=== PATIENT | male | born 1955 | race Hispanic/Latino ===

== ENCOUNTER 2018-09-07 21:29 | Emergency (ER) | payer MEDICARE | END 2018-09-07 22:59 | disposition home or self-care (01) | LOC: EDH 21:29 | DX: S86.111A Strain of other muscle(s) and tendon(s) of posterior muscle group at lower leg level, right leg, initial encounter (principal); E11.9 Type 2 diabetes mellitus without complications; I10 Essential (primary) hypertension; Z91.041 Radiographic dye allergy status; Z88.0 Allergy status to penicillin; Z87.442 Personal history of urinary calculi; X58.XXXA Exposure to other specified factors, initial encounter; Y93.89 Activity, other specified; Y92.89 Other specified places as the place of occurrence of the external cause; Y99.8 Other external cause status | CPT/HCPCS: 73590 ==

== ENCOUNTER 2019-11-02 14:36 | Emergency (ER) | payer MEDICARE ==
[2019-11-02 15:07] LABS: BASOPHILS % (AUTO) 0.9 % (0.0-5.0); EOSINOPHILS % (AUTO) 4.7 % (0.0-8.0); HEMATOCRIT 44.6 % (42-54); LYMPHOCYTES % (AUTO) 40.4 % (21.0-51.0); MEAN CORPUSCULAR HEMOGLOBIN 29.4 pg (27.0-33.0); MEAN CORPUSCULAR HGB CONC 32.5 g/dL (32.0-36.0); MEAN CORPUSCULAR VOLUME 90.5 fL (79-99); MONOCYTES % (AUTO) 9.8 % (3.0-13.0); PLATELET COUNT (AUTO) 223 K/uL (130-400); RED BLOOD CELL COUNT(AUTO) 4.93 MIL/uL (4.50-6.20); RED CELL DISTRIBUTION WIDTH 13.5 % (11.0-15.5); WHITE BLOOD COUNT (AUTO) 6.3 K/uL (4.8-10.8)
[2019-11-02 15:23] LABS: CREATININE 1.1 mg/dL (0.5-1.5); POTASSIUM 3.7 mmol/L (3.5-5.1)
[2019-11-02 15:28] LABS: ALBUMIN 3.9 g/dL (3.5-5.0); BILIRUBIN,TOTAL 0.3 mg/dL (0.2-1.0); TOTAL PROTEIN, SERUM 7.7 g/dL (6.0-8.3)
[2019-11-02 15:50] LABS: APPEARANCE,URINE Clear (CLEAR); BILIRUBIN,URINE Negative (NEGATIVE); COLOR,URINE Yellow (YELLOW); GLUCOSE, URINE (UA) >=1000 mg/dL (NEGATIVE); KETONES,URINE Negative (NEGATIVE); LEUKOCYTE ESTERASE ,URINE Negative (NEGATIVE); NITRATE,URINE Negative (NEGATIVE); OCCULT BLOOD,URINE Negative (NEGATIVE); PROTEIN,URINE Negative (NEGATIVE)
[2019-11-02 16:00] LABS: BACTERIA,URINE None Seen /HPF (None Seen); RBC,URINE 0-1 /HPF (0-1); SQUAMOUS EPITHELIAL CELL,UR 0-2 /HPF (0-2); WBC,URINE 0-1 /HPF (0-1)
[2019-11-02] MEDS ORDERED: DEXAMETHASONE SOD PHOSPHATE 10MG/ML 1ML VIAL ONE ×2 (16:53→17:01)
[2019-11-02] MEDS ORDERED: KETOROLAC TROMETHAMINE 30MG/ML ONE ×2 (16:54→17:01)
[2019-11-02] MEDS ORDERED: ORPHENADRINE CITRATE 30 MG/ML ML ONE (16:54)
[2019-11-02] MEDS ORDERED: CYCLOBENZAPRINE HCL 10 MG TABLET ONE (17:06)
[2019-11-02] MEDS ORDERED: NITROGLYCERIN 1GM/1 INCH PACKET TD ONE (17:46)
[2019-11-02] MEDS ORDERED: LORAZEPAM 2 MG/ML 1 ML VIAL ONE (17:47)
[2019-11-02] MEDS ORDERED: DEXTROSE 50%-WATER 50 ML DISP.SYRIN IV ONE (18:37)
[2019-11-26] MEDS ORDERED: METF-446 PO (14:10)
[2019-11-26] MEDS ORDERED: LISI-617 PO (14:10)
[2019-11-26] MEDS ORDERED: EMPA25TA PO (14:10)
[2019-11-26] MEDS ORDERED: DULO60CA44 PO (14:10)
[2019-11-26] MEDS ORDERED: EZET10TA13 PO (14:10)
[2019-11-26] MEDS ORDERED: METO-408 PO (14:10)
[2019-11-26] MEDS ORDERED: CLOP75TA14 PO (14:10)
[2019-11-26] MEDS ORDERED: INSU100I3 SQ (14:10)
[2019-11-26] MEDS ORDERED: AEC81 PO (14:10)
[2019-11-26] MEDS ORDERED: SITA100T12 PO (14:10)
[2019-11-26] MEDS ORDERED: ROSU40 PO (14:10)
[2019-11-26] MEDS ORDERED: RANO500T3 PO (14:10)
== END 2019-11-02 19:40 | disposition home or self-care (01) ==
LOC: EDH 14:36
DX: M54.5 Low back pain (principal); N50.89 Other specified disorders of the male genital organs; E11.9 Type 2 diabetes mellitus without complications; I10 Essential (primary) hypertension; Z88.0 Allergy status to penicillin; Z91.041 Radiographic dye allergy status
CPT/HCPCS: 36415; 76870; 80053; 81001; 82948; 85025; 93005; 96374; 96375; 99285; J1100 ×2; J1885 ×2; J2360; J7070; J2060

== ENCOUNTER → 2019-11-21 | Outpatient (CLI) | payer MEDICARE ==
[~2019-11-21] VITALS: Ht 177.8 cm; Wt 97.2 kg
[~2019-11-21] MED LIST: AEC81 PO; CLOP75TA14 PO; DULO60CA44 PO; EMPA25TA PO; EZET10TA13 PO; INSU100I3 SQ; LISI-617 PO; METF-446 PO; METO-408 PO; RANO500T3 PO; ROSU40 PO; SITA100T12 PO
[2019-11-21 13:24] LABS: EOSINOPHILS % (AUTO) 3.3 % (0.0-8.0); HEMATOCRIT 47.1 % (42-54); LYMPHOCYTES % (AUTO) 36.1 % (21.0-51.0); MEAN CORPUSCULAR HEMOGLOBIN 29.1 pg (27.0-33.0); MEAN CORPUSCULAR HGB CONC 32.1 g/dL (32.0-36.0); MEAN CORPUSCULAR VOLUME 90.8 fL (79-99); MONOCYTES % (AUTO) 8.2 % (3.0-13.0); NEUTROPHILS % (AUTO) 51.3 % (40.0-77.0); PLATELET COUNT (AUTO) 256 K/uL (130-400); RED BLOOD CELL COUNT(AUTO) 5.19 MIL/uL (4.50-6.20); RED CELL DISTRIBUTION WIDTH 13.6 % (11.0-15.5); WHITE BLOOD COUNT (AUTO) 7.2 K/uL (4.8-10.8)
[2019-11-21 13:33] LABS: CREATININE 1.1 mg/dL (0.5-1.5); POTASSIUM 4.4 mmol/L (3.5-5.1)
[2019-11-21 13:41] LABS: INR 0.93 (0.85-1.15); PARTIAL THROMBOPLASTIN TIME 26.1 SEC (26.3-35.5); PROTHROMBIN TIME 10.1 SEC (9.6-11.6)
[2019-11-26 13:15] VITALS: BP 150/84
--- NOTE | 2019-11-26 14:11 | NUR ---
REPORTED TO DR. OCASIO NURSE BESIDE HIM IN SURGERY, PT DID NOT STOP ASPIRIN AND PLAVIX FOR PROCEDURE. DR. VALDOVINOS NOTIFIED BUT IS IN SURGERY WILL CALL BACK.
--- NOTE | 2019-11-26 15:59 | NUR ---
CALLED TO SPEAK TO DR. VALDOVINOS . NO ANSWER.
--- NOTE | 2019-11-26 16:23 | NUR ---
PROCEDURE CANCELLED BY DR. VALDOVINOS.
== END | disposition home or self-care (01) ==
LOC: DAH 10:00 → EDSTATUS 12:00
PROVIDERS: ATTEND Urology
DX: N49.9 Inflammatory disorder of unspecified male genital organ (principal); Z20.828 Contact with and (suspected) exposure to other viral communicable diseases; E11.9 Type 2 diabetes mellitus without complications; I25.10 Atherosclerotic heart disease of native coronary artery without angina pectoris; I10 Essential (primary) hypertension; Z53.8 Procedure and treatment not carried out for other reasons; Z95.5 Presence of coronary angioplasty implant and graft; Z88.0 Allergy status to penicillin; Z79.899 Other long term (current) drug therapy; Z79.4 Long term (current) use of insulin; Z79.01 Long term (current) use of anticoagulants
CPT/HCPCS: 36415; 71045; 80048; 85025; 85610; 85730; 93005; C9803; U0003

== ENCOUNTER 2019-12-25 08:22 | Day surgery (SDC) | payer MEDICARE ==
[2019-12-19 12:23] LABS: BASOPHILS % (AUTO) 0.8 % (0.0-5.0); HEMATOCRIT 46.3 % (42-54); LYMPHOCYTES % (AUTO) 19.9 % (21.0-51.0); MEAN CORPUSCULAR HEMOGLOBIN 29.3 pg (27.0-33.0); MEAN CORPUSCULAR HGB CONC 32.6 g/dL (32.0-36.0); MEAN CORPUSCULAR VOLUME 89.7 fL (79-99); MONOCYTES % (AUTO) 7.3 % (3.0-13.0); NEUTROPHILS % (AUTO) 69.8 % (40.0-77.0); PLATELET COUNT (AUTO) 281 K/uL (130-400); RED BLOOD CELL COUNT(AUTO) 5.16 MIL/uL (4.50-6.20); RED CELL DISTRIBUTION WIDTH 13.2 % (11.0-15.5); WHITE BLOOD COUNT (AUTO) 8.4 K/uL (4.8-10.8)
[2019-12-19 12:43] LABS: INR 0.94 (0.85-1.15); PARTIAL THROMBOPLASTIN TIME 27.5 SEC (26.3-35.5); PROTHROMBIN TIME 10.2 SEC (9.6-11.6)
[2019-12-19 12:50] LABS: CREATININE 1.2 mg/dL (0.5-1.5); POTASSIUM 4.3 mmol/L (3.5-5.1)
[2019-12-19 13:27] LABS: APPEARANCE,URINE Clear (CLEAR); BILIRUBIN,URINE Negative (NEGATIVE); COLOR,URINE Yellow (YELLOW); GLUCOSE, URINE (UA) >=1000 mg/dL (NEGATIVE); KETONES,URINE 15 mg/dL (NEGATIVE); LEUKOCYTE ESTERASE ,URINE Negative (NEGATIVE); NITRATE,URINE Negative (NEGATIVE); OCCULT BLOOD,URINE Negative (NEGATIVE); PH,URINE 5.5 (5.0-8.0); PROTEIN,URINE Negative (NEGATIVE)
[2019-12-19 14:13] LABS: BACTERIA,URINE Rare /HPF (None Seen); RBC,URINE None Seen /HPF (0-1); WBC,URINE None Seen /HPF (0-1)
[2019-12-19 14:14] LABS: SQUAMOUS EPITHELIAL CELL,UR 0-2 /HPF (0-2)
[2019-12-24 11:04] VITALS: BP 158/86
--- NOTE | 2019-12-24 16:14 | NUR ---
MARCIA CHRISTIANSON ON PHONE. PER DR. VALDOVINOS, PT IS TAKING MACROBID ALREADY.
[~2019-12-25] VITALS: Ht 177.8 cm; Wt 96.3 kg
[2019-12-25] VITALS (17 sets, daily range): BP systolic 116–163; BP diastolic 74–94
[2019-12-25] MEDS: CEFAZOLIN SODIUM 1 GM VIAL IVP SCH ×2 (06:00→09:25)
[~2019-12-25 08:22] MED LIST changes: +INSLAN SQ
[2019-12-25] MEDS ORDERED: INSLAN SQ ×2 (08:56→08:58)
[2019-12-25] MEDS ORDERED: SODIUM CHLORIDE 0.9% 1000ML 1,000 ML IV ONE (09:06)
[2019-12-25] MEDS ORDERED: SUCCINYLCHOLINE 200MG/10ML SYR ONE ×2 (09:20→09:22)
[2019-12-25] MEDS ORDERED: GLYCOPYRROLATE 1 MG/5 ML SYRINGE ONE (09:20)
[2019-12-25] MEDS ORDERED: ONDANSETRON HCL 4 MG/2 ML VIAL ONE (09:20)
[2019-12-25] MEDS ORDERED: LIDOCAINE PF 2% 5ML ABBOJECT ONE ×2 (09:20→09:22)
[2019-12-25] MEDS ORDERED: DEXAMETHASONE SOD PHOSPHATE 10MG/ML 1ML VIAL ONE (09:20)
[2019-12-25] MEDS ORDERED: MIDAZOLAM HCL 1 MG/ML 2ML VIAL ONE (09:20)
[2019-12-25] MEDS ORDERED: NEOSTIGMINE 5MG/5ML SYR IV ONE (09:20)
[2019-12-25] MEDS ORDERED: PROPOFOL 10 MG/ML 20ML VIAL IV ONE (09:20)
[2019-12-25] MEDS ORDERED: ROCURONIUM 10MG/1ML SYR 10 MG/ML ML ONE ×2 (09:21→10:22)
[2019-12-25] MEDS ORDERED: FENTANYL CITRATE PF 50 MCG/1 ML 2ML VIAL ONE (09:21)
[2019-12-25] MEDS ORDERED: MEPERIDINE-PF 25 MG/ML SYG ONE ×2 (10:59→11:10)
--- NOTE | 2019-12-25 11:50 | NUR ---
FLUID INTAKE: DRINKING SIPS OF WATER AND APPLE JUICE WITH OUT COMPLAINING OF NAUSEA. NO EMESIS. TOLERATING FLUIDS WELL.
== END 2019-12-25 12:35 | disposition home or self-care (01) ==
LOC: DAH 08:22
PROVIDERS: ATTEND Urology
DX: N49.9 Inflammatory disorder of unspecified male genital organ (principal); I25.10 Atherosclerotic heart disease of native coronary artery without angina pectoris; E11.9 Type 2 diabetes mellitus without complications; Z95.5 Presence of coronary angioplasty implant and graft; I10 Essential (primary) hypertension; Z88.0 Allergy status to penicillin; Z20.828 Contact with and (suspected) exposure to other viral communicable diseases; Z79.01 Long term (current) use of anticoagulants
CPT/HCPCS: 36415; 54830; 71045; 80048; 81001; 82948 ×2; 85025; 85610; 85730; 87088; 93005; A4215; A4221; A4222; A4223 ×2; A4358; A4657; A4663; A6260; C9803; J0330 ×2; J0690; J1100; J2001 ×2; J2175 ×2; J2250; J2405; J2704; J2710; J3010; J3490; J7030; J7120; U0003

== ENCOUNTER 2023-09-24 09:56 | Emergency (ER) | payer OTHER, MEDICARE ==
[~2023-09-24] VITALS: Ht 175.3 cm; Wt 90.7 kg
[~2023-09-24 09:56] MED LIST changes: +AZIT500T4 PO; +CLOP-31 PO; -CLOP75TA14 PO; -DULO60CA44 PO; +DULO60CA45 PO; -EZET10TA13 PO; +EZET10TA81 PO; -LISI-617 PO; +LISI5TAB21 PO
[2023-09-24 11:24] LABS: BASOPHILS # (AUTO) 0.06 K/uL (0.00-0.20); EOSINOPHILS # (AUTO) 0.22 K/uL (0.00-0.70); EOSINOPHILS % (AUTO) 3.7 % (0.0-8.0); IMMATURE GRANULOCYTE ABSOLUTE 0.01 K/uL (0-1); LYMPHOCYTES # (AUTO) 2.3 K/uL (1.0-4.8); LYMPHOCYTES % (AUTO) 38.9 % (21.0-51.0); MEAN CORPUSCULAR HEMOGLOBIN 29.2 pg (27.0-33.0); MEAN CORPUSCULAR HGB CONC 32.4 g/dL (32.0-36.0); MEAN CORPUSCULAR VOLUME 90.2 fL (79-99); MONOCYTES # (AUTO) 0.5 K/uL (0.1-1.0); MONOCYTES % (AUTO) 8.6 % (3.0-13.0); NEUTROPHILS # (AUTO) 2.8 K/uL (1.8-7.7); NEUTROPHILS % (AUTO) 47.6 % (40.0-77.0); PLATELET COUNT (AUTO) 200 K/uL (130-400); RED CELL DISTRIBUTION WIDTH 13.9 % (11.0-15.5); WHITE BLOOD COUNT (AUTO) 5.9 K/uL (4.8-10.8)
[2023-09-24 11:27] LABS: APPEARANCE,URINE CLEAR (CLEAR); BILIRUBIN,URINE NEGATIVE (NEGATIVE); COLOR,URINE LIGHT-YELLOW (YELLOW); GLUCOSE, URINE (UA) >=1000 mg/dL (NEGATIVE); KETONES,URINE NEGATIVE (NEGATIVE); LEUKOCYTE ESTERASE ,URINE 25 Leu/uL (NEGATIVE); NITRATE,URINE NEGATIVE (NEGATIVE); OCCULT BLOOD,URINE NEGATIVE (NEGATIVE); PROTEIN,URINE NEGATIVE (NEGATIVE); UROBILINOGEN,URINE 0.2 mg/dL (0.2-1.0)
[2023-09-24 11:30] LABS: ADD UA MICROSCOPIC YES
[2023-09-24 11:31] LABS: CREATININE 0.9 mg/dL (0.5-1.3); POTASSIUM 4.2 mmol/L (3.5-5.1)
[2023-09-24 11:35] LABS: BILIRUBIN,TOTAL 0.4 mg/dL (0.2-1.0)
[2023-09-24 11:36] LABS: BACTERIA,URINE RARE /HPF (None Seen); MUCUS,URINE RARE LPF (None Seen); RBC,URINE 0-1 /HPF (0-1); SQUAMOUS EPITHELIAL CELL,UR RARE /HPF (0-2)
[2023-09-24 14:23] VITALS: BP 136/83; PULSE 74; RESP 16; O2SAT 96
[2023-09-24] MEDS ORDERED: CEPH500T PO (14:25)
[2023-09-24] MEDS: CEFTRIAXONE 2GM VIAL IJ ONE (14:41)
== END 2023-09-24 15:29 | disposition home or self-care (01) ==
LOC: EDH 09:56
DX: N39.0 Urinary tract infection, site not specified (principal); E11.9 Type 2 diabetes mellitus without complications; E78.00 Pure hypercholesterolemia, unspecified; I10 Essential (primary) hypertension; Z88.0 Allergy status to penicillin; Z88.8 Allergy status to other drugs, medicaments and biological substances; Z79.4 Long term (current) use of insulin; Z79.82 Long term (current) use of aspirin; Z79.899 Other long term (current) drug therapy; Z95.5 Presence of coronary angioplasty implant and graft; Z98.890 Other specified postprocedural states
CPT/HCPCS: 99285; 74176; 96365; 80053; 85025; 81001; 36415; J0696

== ENCOUNTER 2023-12-16 12:46 | Emergency (ER) | payer MEDICARE ==
[~2023-12-16] VITALS: Ht 175.3 cm; Wt 95.3 kg
[~2023-12-16 12:46] MED LIST changes: +CEPH500T PO
[2023-12-16 13:28] LABS: BASOPHILS # (AUTO) 0.06 K/uL (0.00-0.20); EOSINOPHILS # (AUTO) 0.25 K/uL (0.00-0.70); EOSINOPHILS % (AUTO) 4.1 % (0.0-8.0); HEMATOCRIT 42.6 % (42-54); IMMATURE GRANULOCYTE ABSOLUTE 0.01 K/uL (0-1); LYMPHOCYTES # (AUTO) 2.4 K/uL (1.0-4.8); LYMPHOCYTES % (AUTO) 40.5 % (21.0-51.0); MEAN CORPUSCULAR HEMOGLOBIN 29.4 pg (27.0-33.0); MEAN CORPUSCULAR HGB CONC 33.3 g/dL (32.0-36.0); MEAN CORPUSCULAR VOLUME 88.2 fL (79-99); MONOCYTES # (AUTO) 0.6 K/uL (0.1-1.0); MONOCYTES % (AUTO) 9.3 % (3.0-13.0); NEUTROPHILS # (AUTO) 2.7 K/uL (1.8-7.7); NEUTROPHILS % (AUTO) 44.9 % (40.0-77.0); PLATELET COUNT (AUTO) 209 K/uL (130-400); RED BLOOD CELL COUNT(AUTO) 4.83 MIL/uL (4.50-6.20); RED CELL DISTRIBUTION WIDTH 13.7 % (11.0-15.5)
[2023-12-16 13:53] LABS: POTASSIUM 4.1 mmol/L (3.5-5.1)
[2023-12-16 13:57] LABS: ALBUMIN 3.6 g/dL (3.5-5.0); BILIRUBIN,DIRECT 0.1 mg/dL (0.0-0.3); BILIRUBIN,TOTAL 0.4 mg/dL (0.2-1.0); TOTAL PROTEIN, SERUM 7.5 g/dL (6.0-8.3)
[2023-12-16 14:58] LABS: APPEARANCE,URINE CLEAR (CLEAR); BILIRUBIN,URINE NEGATIVE (NEGATIVE); COLOR,URINE LIGHT-YELLOW (YELLOW); GLUCOSE, URINE (UA) >=1000 mg/dL (NEGATIVE); KETONES,URINE NEGATIVE (NEGATIVE); LEUKOCYTE ESTERASE ,URINE NEGATIVE Leu/uL (NEGATIVE); NITRATE,URINE NEGATIVE (NEGATIVE); OCCULT BLOOD,URINE NEGATIVE (NEGATIVE); PROTEIN,URINE NEGATIVE (NEGATIVE); UROBILINOGEN,URINE 0.2 mg/dL (0.2-1.0)
[2023-12-16 15:02] LABS: ADD UA MICROSCOPIC YES
[2023-12-16 15:04] LABS: RBC,URINE 0-1 /HPF (0-1); WBC,URINE 0-1 /HPF (0-1)
[2023-12-16] MEDS ORDERED: IOHEXOL-350 75 ML VIAL IV ONE (15:59)
[2023-12-16 17:06] VITALS: BP 122/74; PULSE 80; RESP 20; TEMP 98; O2SAT 98
== END 2023-12-16 17:08 | disposition home or self-care (01) ==
LOC: EDH 12:46
DX: R10.84 Generalized abdominal pain (principal); E11.9 Type 2 diabetes mellitus without complications; E78.00 Pure hypercholesterolemia, unspecified; I11.9 Hypertensive heart disease without heart failure; I25.10 Atherosclerotic heart disease of native coronary artery without angina pectoris; Z79.4 Long term (current) use of insulin; Z79.82 Long term (current) use of aspirin; Z79.899 Other long term (current) drug therapy; Z88.0 Allergy status to penicillin; Z95.1 Presence of aortocoronary bypass graft; Z98.890 Other specified postprocedural states
CPT/HCPCS: 99285; 74177; 80076; 80048; 83690; 85025; 82948; 81001; 36415; Q9967

== ENCOUNTER 2024-01-29 06:48 | Day surgery (SDC) | payer MEDICARE ==
[2024-01-25 11:32] LABS: BASOPHILS # (AUTO) 0.06 K/uL (0.00-0.20); BASOPHILS % (AUTO) 0.9 % (0.0-5.0); EOSINOPHILS # (AUTO) 0.23 K/uL (0.00-0.70); EOSINOPHILS % (AUTO) 3.5 % (0.0-8.0); IMMATURE GRANULOCYTE ABSOLUTE 0.01 K/uL (0-1); LYMPHOCYTES # (AUTO) 2.5 K/uL (1.0-4.8); LYMPHOCYTES % (AUTO) 38.2 % (21.0-51.0); MEAN CORPUSCULAR HEMOGLOBIN 29.6 pg (27.0-33.0); MEAN CORPUSCULAR HGB CONC 33.3 g/dL (32.0-36.0); MEAN CORPUSCULAR VOLUME 88.9 fL (79-99); MONOCYTES # (AUTO) 0.6 K/uL (0.1-1.0); MONOCYTES % (AUTO) 8.3 % (3.0-13.0); NEUTROPHILS # (AUTO) 3.3 K/uL (1.8-7.7); NEUTROPHILS % (AUTO) 48.9 % (40.0-77.0); PLATELET COUNT (AUTO) 218 K/uL (130-400); RED BLOOD CELL COUNT(AUTO) 5.51 MIL/uL (4.50-6.20); RED CELL DISTRIBUTION WIDTH 13.7 % (11.0-15.5); WHITE BLOOD COUNT (AUTO) 6.7 K/uL (4.8-10.8)
[2024-01-25 12:21] VITALS: BP 141/77; PULSE 65; RESP 18; TEMP 97.4
[~2024-01-29] VITALS: Ht 175.3 cm; Wt 93.2 kg
[2024-01-29] VITALS (13 sets, daily range): BP systolic 122–164; BP diastolic 75–93; PULSE 58–83; RESP 15–18; TEMP 96.6–98.3
[2024-01-29] MEDS: ceFAZolin SODIUM 2 GM VIAL ONE
[~2024-01-29 06:48] MED LIST changes: -AZIT500T4 PO; -CEPH500T PO; -DULO60CA45 PO; +EMPA1TAB34 PO; -EMPA25TA PO; -METF-446 PO; -METO-408 PO; +METO50TA9 PO; +NITROGLYCERIN 0.2% SL; -SITA100T12 PO; +VENL-53 PO
[2024-01-29] MEDS: 0.9%NACL 1000ML 1,000 ML IV ONE (09:03)
[2024-01-29] MEDS: INSULIN humuLIN R 100 UNIT/ML 3ML ONE (09:08)
[2024-01-29] MEDS ORDERED: INSULIN humuLIN R 100 UNIT/ML 3ML SQ ONE (09:30)
[2024-01-29] MEDS ORDERED: SUCCINYLCHOLINE CHLORIDE 20 MG/ML 10 ML VIAL ONE (09:32)
[2024-01-29] MEDS ORDERED: MIDAZOLAM HCL 1 MG/ML 2ML VIAL ONE (09:32)
[2024-01-29] MEDS ORDERED: proPOFol 10 MG/ML 20ML VIAL IV ONE (09:33)
[2024-01-29] MEDS ORDERED: FENTanyl CITRate PF 50 MCG/1 ML 2ML VIAL ONE (09:33)
[2024-01-29] MEDS ORDERED: rocuRONium bROMide 10MG/1ML 5ML VL ONE (09:33)
[2024-01-29] MEDS ORDERED: CLINDAMYCIN IVPB 600MG/50ML 50 ML IV ONE (09:50)
[2024-01-29] MEDS: BUPIvacaine HCL/EPINEPHrine/PF 0.25% 10ML VIAL IJ ONE (10:16)
[2024-01-29] MEDS ORDERED: GLYCOPYRROLATE 0.2 MG/ML 5 ML VIAL ONE (10:29)
[2024-01-29] MEDS ORDERED: NEOSTIGMINE METHYLSULFATE 1MG/ML IV ONE (10:30)
--- NOTE | 2024-01-29 10:56 | OP ---
Operative Note: DATE OF PROCEDURE: 01/29/24 SURGEON: NOLA ROD MD MACHINE CONTAINER WASHER: [facility] [place] staff ANESTHESIA: General PREOPERATIVE DIAGNOSIS: Left Abdominal wall lipoma POSTOPERATIVE DIAGNOSIS: Left Abdominal wall lipoma Findings: Left abdominal wall lipoma PROCEDURE: Excision of left abdominal wall lipoma ESTIMATED BLOOD LOSS: 30 mL INDICATIONS: 68-year-old male with a history of a symptomatic left abdominal wall lipoma. Excision of the abdominal wall wall lipoma was indicated. We had a discussion about the risks of the surgery including bleeding (increased because of Plavix and aspirin use), infection, recurrence, nerve damage and possible wound care issues. DESCRIPTION OF PROCEDURE: Patient was taken to the operating room and placed on the operating table in supine position. Next general anesthesia was induced and the patient was intubated. His abdomen was prepped and draped in a sterile fashion. A time-out was called and the patient's identity procedure, preope rative antibiotics were confirmed. I made a 4 cm transverse incision near the area of the abdominal wall lipoma. I dissected down the subcutaneous tissues to get around what I presumed to be the lipoma. The fatty contents were resected. The specimen was sent off. The wound was irrigated. And meticulous hemostasis was obtained with electrocautery. The skin was then reapproximated with 4-0 Monocryl suture. Dermabond was applied. Sponge, needle, instrument counts were accurate. The patient's anesthesia was reversed and he was extubated and taken to recovery room in stable condition. NOLA Scott MD Jan 29, 2024 10:56
== END 2024-01-29 11:55 | disposition home or self-care (01) ==
LOC: DAH 06:48
PROVIDERS: ATTEND Surgery
DX: D17.1 Benign lipomatous neoplasm of skin and subcutaneous tissue of trunk (principal); I10 Essential (primary) hypertension; E11.9 Type 2 diabetes mellitus without complications; I25.10 Atherosclerotic heart disease of native coronary artery without angina pectoris; Z79.4 Long term (current) use of insulin; Z95.5 Presence of coronary angioplasty implant and graft; Z79.01 Long term (current) use of anticoagulants; Z79.899 Other long term (current) drug therapy
CPT/HCPCS: 85025; 86850 ×2; 86900 ×2; 86901 ×2; 36415 ×2; 22903; 82948; 88304; A6260; J1815; A4663; J7030 ×2; A4606; J3010; J0330; J3490 ×3; J2250; J2704; J2710; J0690; A4930; A4215; A4223; A4222; A4221; A4600

== ENCOUNTER 2024-03-06 17:28 | Emergency (ER) | payer MEDICARE ==
[~2024-03-06] VITALS: Ht 175.3 cm; Wt 95.3 kg
[2024-03-06 18:44] LABS: COVID19 (SARS ANTIGEN RAPID) PRESUMPTIVE NEGATIVE (NEGATIVE)
[2024-03-06 18:45] LABS: INFLUENZA TYPE A Negative For Type A (NEGATIVE); INFLUENZA TYPE B Negative For Type B (NEGATIVE)
[2024-03-06 20:32] LABS: APPEARANCE,URINE CLEAR (CLEAR); BILIRUBIN,URINE NEGATIVE (NEGATIVE); COLOR,URINE LIGHT-YELLOW (YELLOW); GLUCOSE, URINE (UA) >=1000 mg/dL (NEGATIVE); KETONES,URINE 10 mg/dL (NEGATIVE); LEUKOCYTE ESTERASE ,URINE NEGATIVE Leu/uL (NEGATIVE); NITRATE,URINE NEGATIVE (NEGATIVE); OCCULT BLOOD,URINE NEGATIVE (NEGATIVE); PROTEIN,URINE NEGATIVE (NEGATIVE); UROBILINOGEN,URINE 0.2 mg/dL (0.2-1.0)
[2024-03-06 20:36] LABS: MUCUS,URINE RARE LPF (None Seen); WBC,URINE 0-1 /HPF (0-1)
[2024-03-06 21:51] LABS: BASOPHILS # (AUTO) 0.02 K/uL (0.00-0.20); BASOPHILS % (AUTO) 0.4 % (0.0-5.0); EOSINOPHILS # (AUTO) 0.07 K/uL (0.00-0.70); EOSINOPHILS % (AUTO) 1.3 % (0.0-8.0); IMMATURE GRANULOCYTE ABSOLUTE 0.01 K/uL (0-1); LYMPHOCYTES # (AUTO) 1.1 K/uL (1.0-4.8); LYMPHOCYTES % (AUTO) 19.8 % (21.0-51.0); MEAN CORPUSCULAR HEMOGLOBIN 29.8 pg (27.0-33.0); MEAN CORPUSCULAR HGB CONC 33.6 g/dL (32.0-36.0); MEAN CORPUSCULAR VOLUME 88.5 fL (79-99); MONOCYTES # (AUTO) 0.7 K/uL (0.1-1.0); MONOCYTES % (AUTO) 11.9 % (3.0-13.0); NEUTROPHILS # (AUTO) 3.6 K/uL (1.8-7.7); NEUTROPHILS % (AUTO) 66.4 % (40.0-77.0); PLATELET COUNT (AUTO) 203 K/uL (130-400); RED BLOOD CELL COUNT(AUTO) 4.97 MIL/uL (4.50-6.20); RED CELL DISTRIBUTION WIDTH 13.8 % (11.0-15.5); WHITE BLOOD COUNT (AUTO) 5.5 K/uL (4.8-10.8)
[2024-03-06 22:03] LABS: CREATININE 1.2 mg/dL (0.5-1.3); POTASSIUM 4.1 mmol/L (3.5-5.1)
[2024-03-06 23:28] LABS: ALBUMIN 3.4 g/dL (3.5-5.0); BILIRUBIN,DIRECT 0.1 mg/dL (0.0-0.3); BILIRUBIN,TOTAL 0.5 mg/dL (0.2-1.0); MAGNESIUM 2.1 mg/dL (1.80-2.40); TOTAL PROTEIN, SERUM 6.9 g/dL (6.0-8.3)
[2024-03-07] MEDS: PANTOPrazole 40 MG/VIAL IVP ONE (00:15)
[2024-03-07] MEDS ORDERED: ONDA-243 PO (04:35)
--- NOTE | 2024-03-07 04:36 | ERN ---
ED Note History of Present Illness Stated Complaint: POSSIBLE FOOD POISONING,NAUSEA VOMMITING, DIARRHEA Chief Complaint: Abdominal Pain Time Seen by MD: 19:11 Allergies: Coded Allergies: Penicillins (Unverified Allergy, Unknown, 09/07/18) Home Meds Reported Medications [Nitroglycerin 0.2%] No Conflict Check, 1 SPRAYS SL AD PRN for CHEST PAIN 01/25/24 Metoprolol Succinate (Toprol Xl) 50 Mg Tab.er.24h, 50 MG PO DAILY, TAB 01/25/24 Venlafaxine HCl (Venlafaxine HCl) 37.5 Mg Tablet, 37.5 MG PO BID, TAB 01/25/24 Empaglifloz/Linaglip/Metformin (Trijardy Xr 25-5-1,000 mg Tab) 25 Mg-5 Mg-1,000 Mg Tab.bp.24h, 1 EACH PO DAILY 01/25/24 Insulin Glargine,Hum.rec.anlog (Lantus) 100 Unit/Ml Inj, 30 UNITS SQ HS, ML 12/25/19 Insulin Aspart (Novolog Flexpen) 100 Unit/Ml (3 Ml) Insuln.pen, 15 UNITS SQ TIDAC, SYRINGE 11/26/19 Ranolazine (Ranexa) 500 Mg Tab.er.12h, 500 MG PO HS, TAB 11/26/19 Lisinopril (Lisinopril) 5 Mg Tablet, 5 MG PO HS, TAB 11/26/19 Rosuvastatin Calcium (Crestor) 40 Mg Tab, 40 MG PO HS, TAB 11/26/19 Ezetimibe (Zetia) 10 Mg Tablet, 10 MG PO AM, TAB 11/26/19 Clopidogrel Bisulfate (Plavix) 75 Mg Tablet, 75 MG PO DAILY, TAB 11/26/19 Aspirin (ASPIRIN 81 MG ECTAB) 81 Mg Ectab, 81 MG PO HS, TAB.EC 11/26/19 Past Medical History Dictation 69-year-old male with past medical history of high blood pressure, high cholesterol, diabetes, cardiac stents presents with one day of nausea and vomiting and diarrhea. Patient also reports weakness. Patient denies chest pain, shortness of breath, productive cough, focal neurological deficits, abdominal pain Past Medical History: A-Fib, Diabetes-Type II, High Cholesterol Surgical History: Other Surgical History Other: STENTS Social History: Negative, Lives with family Review of System Dictation See HPI Initial Vital Sign VS Vital Signs Date Time Temp Pulse Resp B/P (MAP) Pulse Ox O2 Delivery O2 Flow Rate FiO2 03/06/24 17:58 100.8 109 20 141/81 96 Room Air 0 03/06/24 22:43 21 Physical Exam Dictation Chronically ill-appearing, acutely weak appearing, abdomen is soft, nontender, non peritoneal, lungs clear to auscultation, symmetrical breath sounds, regular rate and rhythm, no murmurs rubs or gallops Results (Laboratory/Radiology) Laboratory/Radiology Laboratory Tests Test 03/06/24 18:03 03/06/24 18:06 03/06/24 21:26 03/06/24 23:06 Influenza Type A Antigen Negative For Type A Influenza Type B Antigen Negative For Type B SARS-CoV-2 Antigen (Rapid) PRESUMPTIVE NEGATIVE Urine Color LIGHT-YELLOW (YELLOW) Urine Appearance CLEAR (CLEAR) Urine pH 5.0 (5.0-8.0) Urine Specific [place] 1.036 (1.001-1.031) Urine Protein NEGATIVE mg/dL (NEGATIVE) Urine Glucose (UA) >=1000 mg/dL (NEGATIVE) H Urine Ketones 10 mg/dL (NEGATIVE) H Urine Occult Blood NEGATIVE (NEGATIVE) Urine Nitrate NEGATIVE (NEGATIVE) Urine Bilirubin NEGATIVE mg/dL (NEGATIVE) Urine Urobilinogen 0.2 mg/dL (0.2-1.0) Urine Leukocyte Esterase NEGATIVE Amara/uL Urine RBC None /HPF (0-1) Urine WBC 0-1 /HPF (0-1) Urine Bacteria None /HPF (None Seen) White Blood Count 5.5 K/uL (4.8-10.8) Red Blood Count 4.97 MIL/uL (4.50-6.20) Hemoglobin 14.8 g/dL (14.0-18.0) Hematocrit 44.0 % (42-54) Mean Corpuscular Volume 88.5 fL (79-99) Mean Corpuscular Hemoglobin 29.8 pg (27.0-33.0) Mean Corpuscular Hemoglobin Concent 33.6 g/dL (32.0-36.0) Red Cell Distribution Width 13.8 % (11.0-15.5) Platelet Count 203 K/uL (130-400) Mean Platelet Volume 10.5 fL (7.5-10.5) Immature Granulocyte % (Auto) 0.2 % (0-1) Neutrophils (%) (Auto) 66.4 % (40.0-77.0) Lymphocytes (%) (Auto) 19.8 % (21.0-51.0) L Monocytes (%) (Auto) 11.9 % (3.0-13.0) Eosinophils (%) (Auto) 1.3 % (0.0-8.0) Basophils (%) (Auto) 0.4 % (0.0-5.0) Neutrophils # (Auto) 3.6 K/uL (1.8-7.7) Lymphocytes # (Auto) 1.1 K/uL (1.0-4.8) Monocytes # (Auto) 0.7 K/uL (0.1-1.0) Eosinophils # (Auto) 0.07 K/uL (0.00-0.70) Basophils # (Auto) 0.02 K/uL (0.00-0.20) Absolute Immature Granulocyte (auto 0.01 K/uL (0-1) Nucleated Red Blood Cells 0.0 % (0.0-0.19) Sodium Level 136 mmol/L (136-145) Potassium Level 4.1 mmol/L (3.5-5.1) Chloride Level 101 mmol/L (101-111) Carbon Dioxide Level 26 mmol/L (21-32) Blood Urea Nitrogen 21 mg/dL (7-18) H Creatinine 1.2 mg/dL (0.5-1.3) Glomerular Filtration Rate Calc 65 mL/min (>90) Random Glucose 299 mg/dL (70-105) H Total Calcium 8.4 mg/dL (8.5-10.1) L Magnesium Level 2.10 mg/dL (1.80-2.40) Total Bilirubin 0.5 mg/dL (0.2-1.0) Direct Bilirubin 0.1 mg/dL (0.0-0.3) Aspartate Amino Transf (AST/SGOT) 20 U/L (10-37) Alanine Aminotransferase (ALT/SGPT) 26 U/L (12-78) Alkaline Phosphatase 80 U/L (50-136) Total Protein 6.9 g/dL (6.0-8.3) Albumin 3.4 g/dL (3.5-5.0) L Lipase 140 U/L (16-77) H ED Course ED Course Orders Procedure Category Date Status Time Influenza Type A & B, LAB 03/06/24 Complete Rapid 18:02 Covid19 (Sars Antigen LAB 03/06/24 Complete Rapid) 18:02 Cbc With Differential LAB 03/06/24 Complete 19:00 Basic Metabolic Panel LAB 03/06/24 Complete 19:00 Urinalysis LAB 03/06/24 Complete W/Microscopic 19:00 Magnesium LAB 03/06/24 Complete 22:51 Lipase LAB 03/06/24 Complete 22:54 Pantoprazole 40mg Inj PHA 03/06/24 Complete (Protonix 40mg Inj 23:00 Chest 1vw RAD 03/06/24 Taken 22:54 12 Lead Ekg Tracing- EKG 03/06/24 Logged Technical 22:54 Troponin Poc Order LAB 03/06/24 Complete Only 22:54 Hepatic Function Panel LAB 03/06/24 Complete 23:06 Current Medications Medications (Trade) Dose Ordered Sig/Leland Route PRN Reason Start Time Stop Time Status Last Admin Dose Admin Pantoprazole Sodium (PROTonix 40MG INJ) 40 mg ONCE ONCE IVP 03/06/24 23:00 03/06/24 23:01 DC 03/07/24 00:15 Vital Signs Date Time Temp Pulse Resp B/P (MAP) Pulse Ox O2 Delivery O2 Flow Rate FiO2 03/07/24 02:58 79 14 145/71 93 Room Air* 0 03/07/24 00:34 84 16 110/74 94 Room Air* 0 03/06/24 22:43 98.8 93 16 133/77 95 Room Air* 0 03/06/24 17:58 100.8 109 20 141/81 96 Room Air 0 Medical Decision Making [facility] ddx: STEMI versus NSTEMI versus gastroenteritis versus acute pancreatitis versus viral illness All imaging diagnostics interpreted by me unless otherwise stated EK03/06/2024; 05/29/2005 Normal sinus rhythm 83 beats per minute, normal axis, normal intervals, no acute ischemic ST-T changes EKG shows nonspecific ST-T changes. Troponin within normal limits. Doubt STEM I. Doubt NSTEMI. Chest x-ray shows no acute cardiopulmonary pathology. Doubt pneumonia. Doubt CHF. Lipase within normal limits. Doubt acute pancreatitis. Abdomen is soft and nondistended. Low clinical suspicion for SBO. We will forego CT abdomen and pelvis at this time. Patient's physical exam and history consistent with acute viral gastro enteritis. Patient's chemistry significant for for BRADLY. Patient given fluid bolus Upon re-evaluation, patient improves remains slightly weak. Discussed ED workup patient. Recommend close primary care follow-up. Return precautions given. Invited answered all questions prior to discharge. DX & DISP Disposition: Discharge Departure Impression: Primary Impression: Acute nausea with nonbilious vomiting Additional Impression: BRADLY (acute kidney injury) Critical Time: 30 minutes Condition: Stable Scripts Ondansetron (Ondansetron Odt) 4 Mg Tab.rapdis 4 MG PO Q6HPRN for 5 Days, #15 TAB Prov: SILVINA VIDES DO 03/07/24 Additional Instructions: Please return to emergency department immediately if symptoms recur, if you feel weak, lightheaded, chest pain, shortness of breath, continuous nausea and vomiting, abdominal pain. Please follow up with primary care physician next available appointment. Referrals: VASQUEZ SMITH (PCP) Time of Disposition: 04:34 SILVINA VIDES DO Mar 07, 2024 04:35
[2024-03-07 04:48] VITALS: BP 135/65; PULSE 75; RESP 17; TEMP 98.7; O2SAT 98
--- NOTE | 2024-03-07 06:06 | EKG ---
[facility] Test Date: 2024-03-06 Test Time: 23:06:08 Pat Name: ALICE LAY Department: ED Room: Gender: M Traffic Engineering Director: [id number] : 1955 Requested By: SILVINA VIDES Order Number: [id number] Reading MD: Prashant Begum Measurements Intervals [place] Rate: 83 P: 28 TX: 155 QRS: 56 QRSD: 115 T: 18 QT: 377 QTc: 444 Interpretive Statements Sinus rhythm Nonspecific intraventricular conduction delay Compared to ECG 12/14/2021 20:36:28 No significant changes Electronically Signed On 03-07-2024 14:09:05 SEAL EXTRUSION OPERATOR by Prashant Begum Please click the below link to view image of tracing.
--- NOTE | 2024-03-07 08:55 | HMCIMG ---
Exam Type: CHEST 1VW Clinical Information: cp Comparison: None Findings: The lungs are clear of infiltrates. The heart is normal in size. The bony and soft tissue structures of the chest are unremarkable. Impression: Clear lungs.
== END 2024-03-07 04:47 | disposition home or self-care (01) ==
LOC: EDH 17:28
DX: N17.9 Acute kidney failure, unspecified (principal); E11.9 Type 2 diabetes mellitus without complications; E78.00 Pure hypercholesterolemia, unspecified; Z20.822 Contact with and (suspected) exposure to COVID-19; Z79.02 Long term (current) use of antithrombotics/antiplatelets; Z79.4 Long term (current) use of insulin; Z79.82 Long term (current) use of aspirin; Z79.84 Long term (current) use of oral hypoglycemic drugs; Z79.899 Other long term (current) drug therapy; Z88.0 Allergy status to penicillin; Z95.5 Presence of coronary angioplasty implant and graft; Z98.890 Other specified postprocedural states
CPT/HCPCS: 99285; 71045; 87426; 80076; 83735; 80048; 83690; 85025; 87804 ×2; 81001; 36415; 93005; 96374; J2470

== ENCOUNTER 2024-11-12 03:22 | Emergency (ER) | payer MEDICARE ==
[~2024-11-12] VITALS: Ht 175.3 cm; Wt 93.4 kg
[~2024-11-12 03:22] MED LIST changes: +ONDA-243 PO
--- NOTE | 2024-11-12 03:40 | ERN ---
ED Note History of Present Illness Stated Complaint: C/O SUGAR PROBLEM Chief Complaint: Blood Sugar Problem Time Seen by MD: 03:24 Time Seen by Midlevel: 03:24 Dictation: The patient is a 69-year-old male with a history of diabetes, CAD, hypertension who presents to the emergency department with complaints of elevated blood sugars. Patient reports that he has a monitoring device that has been telling him his blood sugars are above 400. Patient gave himself insulin from his insulin pump about 30 minutes prior to arrival. Reports that he went to his pain specialist today and he received some back injections. Patient thinks th ey were steroids and that is what making his blood glucose go up. Patient otherwise denies any recent illness, denies any nausea or vomiting. Allergies: Coded Allergies: Penicillins (Unverified Allergy, Unknown, 09/07/18) Home Meds Active Scripts Ondansetron (Ondansetron Odt) 4 Mg Tab.rapdis, 4 MG PO Q6HPRN for 5 Days, #15 TAB Prov:MAHOGANYSILVINA Hosea SHEEHAN 03/07/24 Reported Medications [Nitroglycerin 0.2%] No Conflict Check, 1 SPRAYS SL AD PRN for CHEST PAIN 01/25/24 Metoprolol Succinate (Toprol Xl) 50 Mg Tab.er.24h, 50 MG PO DAILY, TAB 01/25/24 Venlafaxine HCl (Venlafaxine HCl) 37.5 Mg Tablet, 37.5 MG PO BID, TAB 01/25/24 Empaglifloz/Linaglip/Metformin (Trijardy Xr 25-5-1,000 mg Tab) 25 Mg-5 Mg-1,000 Mg Tab.bp.24h, 1 EACH PO DAILY 01/25/24 Insulin Glargine,Hum.rec.anlog (Lantus) 100 Unit/Ml Inj, 30 UNITS SQ HS, ML 12/25/19 Insulin Aspart (Novolog Flexpen) 100 Unit/Ml (3 Ml) Insuln.pen, 15 UNITS SQ TIDAC, SYRINGE 11/26/19 Ranolazine (Ranexa) 500 Mg Tab.er.12h, 500 MG PO HS, TAB 11/26/19 Lisinopril (Lisinopril) 5 Mg Tablet, 5 MG PO HS, TAB 11/26/19 Rosuvastatin Calcium (Crestor) 40 Mg Tab, 40 MG PO HS, TAB 11/26/19 Ezetimibe (Zetia) 10 Mg Tablet, 10 MG PO AM, TAB 11/26/19 Clopidogrel Bisulfate (Plavix) 75 Mg Tablet, 75 MG PO DAILY, TAB 11/26/19 Aspirin (ASPIRIN 81 MG ECTAB) 81 Mg Ectab, 81 MG PO HS, TAB.EC 11/26/19 Past Medical History Past Medical History: Diabetes-Type II, High Cholesterol, Heart Disease, Hypertension Surgical History: Other Surgical History Other: STENTS Social History: Negative, Lives with family RN Note Reviewed/Agreed w/PFSH: Yes Review of System Dictation Constitutional: Negative for fever,chills, and weight loss Eyes: Negative for injury, pain,redness, and discharge ENT: Negative for injury,pain or swelling Cardiovascular: Negative for chest pain, palpitations, and edema Respiratory: Negative for shortness of breath, cough, and wheezing, Abdomen/GI: Negative for abdominal pain, nausea, vomiting, diarrhea, and constipation Back: Negative for injury and pain : Negative for injury, bleeding and discharge MS/Extremity: Negative for injury and deformity Skin: Negative for rash, and discoloration Neuro: Negative for headache, weakness, numbness, tingling, and seizure Psych: Negative for suicide ideation, homicidal ideation, and hallucinations Initial Vital Sign VS Vital Signs Date Time Temp Pulse Resp B/P (MAP) Pulse Ox O2 Delivery O2 Flow Rate FiO2 11/12/24 03:24 97.2 84 20 141/73 99 Room Air Physical Exam Dictation Vital Signs reviewed General Appearance: Alert, oriented x 3, no acute distress, well developed, nourished. Head and Face: non-traumatic. Eyes: PERRL, pink conjunctivas, eyelid no trauma, anterior chamber with arcus senilis. Ears: Pinnas intact and no signs of trauma or erythema ear canals clear and no discharge TM no erythema Nose: No discharge, no bleeding. Oropharynx: Mouth normal, tongue pink. pharynx clear,no erythema, tonsils no exudates, no abscesses noted, mucous membrane moist Neck: Supple, non-tender, no thyromegaly, no masses, no JVD, no bruits Breast:Deferred Chest:No tenderness, no crepitus, no paradoxical movement, no retractions Lungs:Clear, well-ventilated, symmetric, no rales, no wheezing, no rhonchi, no stridor, good breath sounds bilaterally Heart: Regular rate, regular rhythm, no murmur, no gallops Vascular: no peripheral edema, Abdomen: Soft, positive bowel sounds, nondistended, no guarding, nontender, no rebound, no masses no hepatomegaly, no splenomegaly, no Lee's sign, no hernias. Rectal: Deferred Genital: Deferred Neurological: Normal speech, motor function intact, sensory function intact Musculoskeletal: Neck nontender, full range of motion, back nontender, full range of motion, Extremities: nontender, full range of motion Skin: Color pink, dry, no turgor, no rash, no lacerations, no abrasions, no contusions. Lymphatic: Deferred Results (Laboratory/Radiology) Laboratory/Radiology Laboratory Tests Test 11/12/24 03:52 White Blood Count 9.6 K/uL (4.8-10.8) Red Blood Count 4.64 MIL/uL (4.50-6.20) Hemoglobin 13.9 g/dL (14.0-18.0) L Hematocrit 42.6 % (42-54) Mean Corpuscular Volume 91.8 fL (79-99) Mean Corpuscular Hemoglobin 30.0 pg (27.0-33.0) Mean Corpuscular Hemoglobin Concent 32.6 g/dL (32.0-36.0) Red Cell Distribution Width 13.8 % (11.0-15.5) Platelet Count 223 K/uL (130-400) Mean Platelet Volume 10.5 fL (7.5-10.5) Immature Granulocyte % (Auto) 0.3 % (0-1) Neutrophils (%) (Auto) 82.5 % (40.0-77.0) H Lymphocytes (%) (Auto) 12.1 % (21.0-51.0) L Monocytes (%) (Auto) 4.9 % (3.0-13.0) Eosinophils (%) (Auto) 0.0 % (0.0-8.0) Basophils (%) (Auto) 0.2 % (0.0-5.0) Neutrophils # (Auto) 8.0 K/uL (1.8-7.7) H Lymphocytes # (Auto) 1.2 K/uL (1.0-4.8) Monocytes # (Auto) 0.5 K/uL (0.1-1.0) Eosinophils # (Auto) 0.00 K/uL (0.00-0.70) Basophils # (Auto) 0.02 K/uL (0.00-0.20) Absolute Immature Granulocyte (auto 0.03 K/uL (0-1) Nucleated Red Blood Cells 0.0 % (0.0-0.19) Sodium Level 135 mmol/L (136-145) L Potassium Level 4.2 mmol/L (3.5-5.1) Chloride Level 102 mmol/L (101-111) Carbon Dioxide Level 25 mmol/L (21-32) Blood Urea Nitrogen 21 mg/dL (7-18) H Creatinine 1.1 mg/dL (0.5-1.3) Glomerular Filtration Rate Calc 72 mL/min (>90) Random Glucose 322 mg/dL (70-105) H Whole Blood Ketones Quantitative 0.2 mmol/L (0.0-0.6) Total Calcium 9.0 mg/dL (8.5-10.1) Labs Reviewed?: Yes ED Course ED Course Orders Procedure Category Date Status Time Cbc With Differential LAB 11/12/24 Complete 03:42 0.9%Nacl 1000ml (Ns PHA 11/12/24 Complete 1000ml) 04:00 Basic Metabolic Panel LAB 11/12/24 Complete 03:42 Ketone Blood LAB 11/12/24 Complete Quantitative 03:42 Insulin Regular, PHA 11/12/24 Complete Human 3ml (Humulin R 05:00 Bedside Glucose CPOE 11/12/24 Transmitted Fingerstick 04:59 Current Medications Medications (Trade) Dose Ordered Sig/Leland Route PRN Reason Start Time Stop Time Status Last Admin Dose Admin Insulin Human Regular (humuLIN R 100 UNIT/ML 3ML) 5 unit ONCE ONCE IV 11/12/24 05:00 11/12/24 05:01 DC 11/12/24 05:19 Sodium Chloride 1,000 ml @ 0 mls/hr ONCE ONCE IV 11/12/24 04:00 11/12/24 04:01 DC 11/12/24 03:49 Vital Signs Date Time Temp Pulse Resp B/P (MAP) Pulse Ox O2 Delivery O2 Flow Rate FiO2 11/12/24 03:24 97.2 84 20 141/73 99 Room Air Medical Decision Making MDM MDM: Differential diagnosis:Dehydration, electrolyte imbalance, DKA Rationale: Tests considered and ordered secondary to shared decision making include: Previous outside records reviewed: Old ER visits. Risk of complication and/or morbidity or mortality of patient management: None Medications-Per medication reconciliation Need for hospitalization: Patient does not meet criteria for hospitalization. Need for emergency major/minor surgery: No There are no social concerns with this patient. Prescription drug management Prescriptions will include symptomatic care Patient's prior external medical records from other ER visits were reviewed by me as indicated. Prior testing and results from previous visits were reviewed. Prior tests were taken into account with medical decision making and resource utilization, independent historian/historians were used to obtain complete medical history. I independently interpreted the test that were performed, results were reviewed by me and considered findings on radiology if ordered. Medical management and examination interpretation discussions were had by me with other qualified healthcare professionals as indicated for the patient's care.The patient is a 69-year-old male with a history of diabetes, CAD, hypertension who presents to the emergency department with complaints of elevated blood sugars. Patient reports that he has a monitoring device that has been telling him his blood sugars are above 400. Patient gave himself insulin from his insulin pump about 30 minutes prior to arrival. Reports that he went to his pain specialist today and he received some back injections. Patient thinks they were steroids and that is what making his blood glucose go up. Patient otherwise denies any recent illness, denies any nausea or vomiting. DX & DISP Disposition: Discharge Departure Impression: Primary Impression: Hyperglycemia due to diabetes mellitus Condition: Stable Additional Instructions: FOLLOW-UP WITH PRIMARY CARE PROVIDER IN 1 TO 2 DAYS. TAKE MEDICATIONS DIRECTED HERE IN THE EMERGENCY ROOM. OKAY TO CONTINUE HOME MEDICATIONS UNLESS OTHERWISE DISCUSSED DURING YOUR VISIT IN THE EMERGENCY ROOM TODAY. RETURN TO YOUR NEAREST EMERGENCY ROOM IF SYMPTOMS WORSEN OR IF THERE IS NO IMPROVEMENT. CALL 911 IF YOU NEED IMMEDIATE ASSISTANCE. TAKE TYLENOL BIEW-NAC-IOAOIHI NEEDED AND IF NO CONTRAINDICATIONS ARE PRESENT. INCREASE ORAL HYDRATION. A WOUND CULTURE OR URINE CULTURE WAS ORDERED HERE IN THE EMERGENCY ROOM DEPARTMENT PLEASE FOLLOW-UP WITH PRIMARY CARE PROVIDER AND ADVISE THEM TO GET REPORTS FROM OUR FACILITY. IF YOU HAD ANY QUYEN WRAP/SPLINTS THAT WERE APPLIED HERE, PLEASE DO NOT REMOVE THEM UNTIL YOU SEE YOUR PRIMARY CARE OR SPECIALTY. Referrals: Referrals: VASQUEZ SMITH (PCP) Time of Disposition: 05:38 BERENICE DORMAN Nov 12, 2024 03:40 ULYSSES HICKS MD Nov 12, 2024 05:21
[2024-11-12] MEDS: 0.9%NACL 1000ML 1,000 ML IV ONE (03:49)
[2024-11-12 04:05] LABS: IMMATURE GRANULOCYTE ABSOLUTE 0.03 K/uL (0-1); NUCLEATED RED BLOOD CELLS 0.0 % (0.0-0.19); PLATELET COUNT (AUTO) 223 K/uL (130-400); RED BLOOD CELL COUNT(AUTO) 4.64 MIL/uL (4.50-6.20); RED CELL DISTRIBUTION WIDTH 13.8 % (11.0-15.5); WHITE BLOOD COUNT (AUTO) 9.6 K/uL (4.8-10.8)
[2024-11-12 04:16] LABS: CREATININE 1.1 mg/dL (0.5-1.3); GLOMERULAR FILTR. RATE CALC 72.0 mL/min (>90); GLUCOSE,RANDOM 322.0 mg/dL (70-105); SODIUM SERUM 135.0 mmol/L (136-145); UREA NITROGEN, BLOOD 21.0 mg/dL (7-18)
[2024-11-12 05:37] VITALS: BP 145/66; PULSE 88; RESP 18; TEMP 98.5; O2SAT 99
== END 2024-11-12 05:45 | disposition home or self-care (01) ==
LOC: EDH 03:22
DX: E11.65 Type 2 diabetes mellitus with hyperglycemia (principal); E78.00 Pure hypercholesterolemia, unspecified; I11.9 Hypertensive heart disease without heart failure; Z79.02 Long term (current) use of antithrombotics/antiplatelets; Z79.4 Long term (current) use of insulin; Z79.82 Long term (current) use of aspirin; Z79.84 Long term (current) use of oral hypoglycemic drugs; Z79.899 Other long term (current) drug therapy; Z88.0 Allergy status to penicillin
CPT/HCPCS: 99283; 96374; 80048; 85025; 82948 ×2; 82010; 36415; J1815